=== PATIENT | male | born 1980 | race Caucasian/White ===

== ENCOUNTER 2018-04-18 15:39 | Day surgery (SDC) | payer SELFPAY ==
--- NOTE | 2018-04-18 16:31 | NUR ---
PT VERBALIZES UNDERSTANDING TO RETURN TO [facility] FOR PPD READING ON 04/20/18 AND 04/21/18.
== END 2018-04-18 16:25 | disposition home or self-care (01) ==
LOC: ATC 15:39
DX: Z11.1 Encounter for screening for respiratory tuberculosis (principal)
CPT/HCPCS: 86580